=== PATIENT | male | born 1965 | race Caucasian/White ===

== ENCOUNTER → 2018-10-28 07:39 | Outpatient (CLI) | payer OTHER, SELFPAY ==
[2018-10-28 08:56] LABS: Cholesterol 203 mg/dL (140-199); HDL Cholesterol 41 mg/dL (40-60); LDL Cholesterol Calculated 126 mg/dL (<100); Triglycerides 179 mg/dL (35-150)
== END ==
LOC: LAB 07:39
PROVIDERS: Family Provider Family Medicine; PCP Family Medicine; Visit Provider Family Medicine
DX: E78.5 Hyperlipidemia, unspecified (principal)
CPT/HCPCS: 36415; 80061

== ENCOUNTER → 2018-11-12 07:58 | Outpatient (CLI) | payer OTHER, SELFPAY ==
[2018-11-12 08:47] LABS: Add Manual Diff / Slide Review NO; Basophils Absolute Auto 0 /uL (0-100); Basophils Percent Auto 0.3 % (0-2); Eosinophils Absolute Auto 100 /uL (0-450); Eosinophils Percent Auto 3.3 % (2-4); Hematocrit 44.1 % (41-53); Hemoglobin 15.2 g/dL (13.5-17.5); Lymphocytes Absolute Auto 1000 /uL (1100-4500); Lymphocytes Percent Auto 22.4 % (25-40); Mean Corpuscular HGB Conc 34.5 % (30-36); Mean Corpuscular Hemoglobin 34.2 PG (26-34); Mean Corpuscular Volume 99.3 fL (80-100); Monocytes Absolute Auto 500 /uL (0-900); Monocytes Percent Auto 10.6 % (3-14); Neutrophils Absolute Auto 2800 /uL (1500-7000); Neutrophils Percent Auto 63.4 % (50-75); Platelet Count 214 X10^3/uL (150-400); Red Blood Cell Count 4.44 X10^6/uL (4.5-5.9); Red Cell Distribution Width 12.5 % (11.6-14.8); White Blood Cell Count 4.5 X10^3/uL (4.5-11.0)
[2018-11-12 08:58] LABS: Alanine Aminotransferase 46 IU/L (21-72); Albumin Globulin Ratio 1.3 (1.0-2.8); Alkaline Phosphatase 80 U/L (38-126); Aspartate Aminotransferase 36 IU/L (17-59); Bilirubin Total 0.9 mg/dL (0.2-1.3); Blood Urea Nitrogen 14 mg/dL (9-20); Carbon Dioxide 30 mmol/L (22-32); Chloride 99 mmol/L (98-107); Cholesterol 222 mg/dL (140-199); Estimated Glomerular Filt Rate > 60.0 mL/min (>60); Globulin 3.8 g/dL (1.7-4.1); Glucose 98 mg/dL (70-100); HDL Cholesterol 46 mg/dL (40-60); HEMOLYSIS < 15 (0-50); LDL Cholesterol Calculated 157 mg/dL (<100); Sodium 140 mmol/L (137-145); Total Protein 8.8 g/dL (6.3-8.2); Triglycerides 97 mg/dL (35-150)
[2018-11-12 10:00] LABS: Thyroid Stimulating Hormone 2.47 uIU/mL (0.47-4.68)
== END ==
PROVIDERS: PCP Family Medicine; Visit Provider Family Medicine
DX: E78.5 Hyperlipidemia, unspecified (principal); I10 Essential (primary) hypertension; I25.10 Atherosclerotic heart disease of native coronary artery without angina pectoris
CPT/HCPCS: 36415; 80053; 80061; 84443; 85025

== ENCOUNTER → 2021-12-13 12:03 | Outpatient (CLI) | payer OTHER, SELFPAY ==
[2021-12-13 13:09] LABS: Hematocrit 43.7 % (41-53); Mean Corpuscular HGB Conc 34.3 % (30-36); Mean Corpuscular Hemoglobin 34.2 PG (26-34); Mean Corpuscular Volume 99.6 fL (80-100); Platelet Count 219 X10^3/uL (150-400); Red Blood Cell Count 4.39 X10^6/uL (4.5-5.9); Red Cell Distribution Width 12.4 % (11.6-14.8); White Blood Cell Count 5.3 X10^3/uL (4.5-11.0)
[2021-12-13 13:51] LABS: Neutrophils Absolute Manual 3498 /uL (3000-5900); Total Cells Counted 100
[2021-12-13 13:52] LABS: RBC Morphology Normal Morphology
[2021-12-13 14:23] LABS: Alanine Aminotransferase 41 IU/L (<50); Albumin 5.1 g/dL (3.5-5.0); Albumin Globulin Ratio 1.6 (1.0-2.8); Alkaline Phosphatase 75 U/L (38-126); Aspartate Aminotransferase 43 IU/L (17-59); BUN Creatinine Ratio 17.1 (6-22); Blood Urea Nitrogen 12 mg/dL (9-20); Calcium 9.6 mg/dL (8.4-10.2); Carbon Dioxide 31 mmol/L (22-32); Chloride 101 mmol/L (98-107); Cholesterol 190 mg/dL (140-199); Estimated Glomerular Filt Rate > 60 mL/min (>60); Globulin 3.1 g/dL (1.7-4.1); Glucose 89 mg/dL (70-100); HDL Cholesterol 55 mg/dL (40-60); HEMOLYSIS < 15 (0-50); LDL Cholesterol Calculated 116 mg/dL (<100); Potassium 4.2 mmol/L (3.4-5.1); Sodium 141 mmol/L (137-145); Total Protein 8.2 g/dL (6.3-8.2); Triglycerides 97 mg/dL (35-150)
== END ==
PROVIDERS: PCP Family Medicine; Referring Provider Family Medicine; Visit Provider Family Medicine
DX: E78.5 Hyperlipidemia, unspecified (principal); I10 Essential (primary) hypertension; I24.9 Acute ischemic heart disease, unspecified
CPT/HCPCS: 36415; 80053; 80061; 84153; 85025

== ENCOUNTER → 2023-08-18 14:23 | Outpatient (CLI) | payer OTHER, SELFPAY | PROVIDERS: PCP Family Medicine; Visit Provider Nurse Practitioner Family | DX: J02.9 Acute pharyngitis, unspecified (principal) | CPT/HCPCS: 87070 ==

== ENCOUNTER 2024-03-23 09:49 | Emergency (ER) | payer OTHER, SELFPAY ==
[2024-03-23 10:18] VITALS: BP 141/85; PULSE 87; RESP 15; TEMP 37.2; O2SAT 96; BMI 25.8
--- NOTE | 2024-03-23 10:27 | EKG_ITS ---
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
[2024-03-23 10:49] LABS: Add Manual Diff / Slide Review NO; Basophils Absolute Auto 0 /uL (0-100); Basophils Percent Auto 0.3 % (0-2); Eosinophils Absolute Auto 0 /uL (0-450); Hematocrit 47.9 % (41-53); Hemoglobin 16.9 g/dL (13.5-17.5); Lymphocytes Absolute Auto 600 /uL (1100-4500); Lymphocytes Percent Auto 3.6 % (25-40); Mean Corpuscular HGB Conc 35.2 % (30-36); Mean Corpuscular Hemoglobin 35.2 PG (26-34); Mean Corpuscular Volume 99.9 fL (80-100); Monocytes Absolute Auto 1100 /uL (0-900); Monocytes Percent Auto 6.7 % (3-14); Neutrophils Absolute Auto 15000 /uL (1500-7000); Neutrophils Percent Auto 89.4 % (50-75); Platelet Count 190 X10^3/uL (150-400); Red Cell Distribution Width 12.8 % (11.6-14.8); White Blood Cell Count 16.8 X10^3/uL (4.5-11.0)
[2024-03-23 11:06] LABS: Lipase 71 U/L (23-300)
[2024-03-23 11:08] LABS: Alanine Aminotransferase 77 IU/L (<50); Albumin 4.8 g/dL (3.5-5.0); Albumin Globulin Ratio 1.4 (1.0-2.8); Alkaline Phosphatase 88 U/L (38-126); Aspartate Aminotransferase 71 IU/L (17-59); Bilirubin Total 2.5 mg/dL (0.2-1.3); Blood Urea Nitrogen 16 mg/dL (9-20); Calcium 9.2 mg/dL (8.4-10.2); Carbon Dioxide 27 mmol/L (22-32); Chloride 99 mmol/L (98-107); Estimated Glomerular Filt Rate > 60 mL/min (>60); Globulin 3.4 g/dL (1.7-4.1); Glucose 121 mg/dL (80-110); HEMOLYSIS < 15 (0-50); Potassium 4.4 mmol/L (3.4-5.1); Sodium 137 mmol/L (137-145); Total Protein 8.2 g/dL (6.3-8.2)
== END 2024-03-23 15:41 | disposition left against medical advice (07) ==
PROVIDERS: Emergency Provider Emergency Medicine; PCP Family Medicine
DX: R10.30 Lower abdominal pain, unspecified (principal); R50.9 Fever, unspecified
CPT/HCPCS: 36415; 80053; 83690; 85025; 93005; 99281

== ENCOUNTER 2024-07-13 14:41 | Emergency (ER) | payer OTHER, SELFPAY ==
[2024-07-13] VITALS (22 sets, daily range): BP systolic 94–196; BP diastolic 51–99; PULSE 48–74; RESP 12–21; TEMP 36.8; O2SAT 92–98; BMI 25.8
--- NOTE | 2024-07-13 14:47 | DI.RAD.S_ITS ---
PROCEDURE: XR CHEST 1V INDICATIONS: chest pain TECHNIQUE: One view of the chest was acquired. COMPARISON: [facility], , CHEST 1 VIEW, 06/09/2017, 10:59. FINDINGS: Surgical changes and devices: None. Lungs and pleura: Low lung volumes. No dense airspace disease or pleural effusions. Mediastinum: Heart size is normal and unchanged. Bones and chest wall: Degenerative findings IMPRESSION: Low lung volumes. No acute radiographic abnormality on this single view study. Dictated by: Abdoul Alvarado M.D. on 07/13/2024 at 16:16 Approved by: Abdoul Alvarado M.D. on 07/13/2024 at 16:17
--- NOTE | 2024-07-13 15:04 | EKG_ITS ---
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
[2024-07-13 15:21] LABS: Add Manual Diff / Slide Review NO; Basophils Absolute Auto 0 /uL (0-100); Basophils Percent Auto 0.4 % (0-2); Eosinophils Absolute Auto 200 /uL (0-450); Hematocrit 48.8 % (41-53); Hemoglobin 17.2 g/dL (13.5-17.5); Lymphocytes Absolute Auto 1400 /uL (1100-4500); Lymphocytes Percent Auto 15.9 % (25-40); Mean Corpuscular HGB Conc 35.2 % (30-36); Mean Corpuscular Hemoglobin 35.1 PG (26-34); Mean Corpuscular Volume 99.9 fL (80-100); Monocytes Absolute Auto 600 /uL (0-900); Monocytes Percent Auto 6.9 % (3-14); Neutrophils Absolute Auto 6500 /uL (1500-7000); Neutrophils Percent Auto 74.8 % (50-75); Platelet Count 228 X10^3/uL (150-400); Red Blood Cell Count 4.89 X10^6/uL (4.5-5.9); White Blood Cell Count 8.7 X10^3/uL (4.5-11.0)
[2024-07-13 15:28] LABS: INR 1.1 (0.9-1.3); Prothrombin Time 12.5 SECONDS (9.4-12.5)
[2024-07-13 15:30] LABS: PTT Partial Thromboplastin Tim 38 SECONDS (25.1-36.5)
[2024-07-13 15:39] LABS: Alanine Aminotransferase 70 IU/L (<50); Albumin 4.8 g/dL (3.5-5.0); Albumin Globulin Ratio 1.3 (1.0-2.8); Alkaline Phosphatase 74 U/L (38-126); Aspartate Aminotransferase 87 IU/L (17-59); Bilirubin Total 1.8 mg/dL (0.2-1.3); Blood Urea Nitrogen 13 mg/dL (9-20); Calcium 9.9 mg/dL (8.4-10.2); Carbon Dioxide 26 mmol/L (22-32); Chloride 101 mmol/L (98-107); Creatine Kinase 87 U/L (55-170); Estimated Glomerular Filt Rate > 60 mL/min (>60); Globulin 3.7 g/dL (1.7-4.1); Glucose 97 mg/dL (80-110); Lipase 202 U/L (23-300); Magnesium 1.9 mg/dL (1.6-2.3); Potassium 4.4 mmol/L (3.4-5.1); Sodium 136 mmol/L (137-145); Total Protein 8.5 g/dL (6.3-8.2)
[2024-07-13 15:40] LABS: HEMOLYSIS 86 (0-50)
[2024-07-13 15:51] LABS: NT-proBNP (BNP-Adult 18+) 64 pg/mL (<125)
[2024-07-13 16:02] LABS: Troponin I 0.148 ng/mL (0.01-0.034)
--- NOTE | 2024-07-13 16:04 | ED_ITS ---
HPI - Chest Pain General Chief Complaint: Chest Pain Stated Complaint: chest tightness, HBP, weakness Time Seen by Provider: 07/13/24 16:04 Source: patient and family Mode of arrival: Ambulatory History of Present Illness HPI narrative: 58-year-old gentleman with History PR 8 years ago, 6:00 p.m. last night noted some chest pressure as well as elevated blood pressure which is quite unusual for him. He took dose of lisinopril and went to bed. The blood pressure seemed to respond and the chest pressure seemed to be slightly relieved. When he woke up this morning and noted additional substernal pressure and blood pressures again increasing. He took a dose of his 's propranolol, a baby aspirin and comes in for further evaluation. He has not noticing shortness of breath, diaphoresis, abdominal pain, vomiting. He has having no palpitations. At times he notes that the chest pain which is typically substernal is radiating into the left upper chest and left neck area. At most he describes the pain sensation as a 6/10 describes it currently as a 3/10. Related Data Home Medications Medication Instructions Recorded Confirmed aspirin 81 mg tablet,delayed 324 mg PO QDAY PRN ##0 06/09/17 07/08/24 release Allergies Allergy/AdvReac Type Severity Reaction Status Date / Time No Known Drug Allergies Allergy Verified 07/08/24 10:08 Review of Systems Review of Systems Narrative: Pertinent positive and negative findings as per HPI Patient History Medical History (Updated 07/13/24 @ 18:19 by Christine Robles MD) NSTEMI (non-ST elevated myocardial infarction) Vision disorder Chicken pox (~1970) Hypertension Surgical History History of vasectomy History of tonsillectomy Anesthesia Family History Father Age: 88 Heart disease Hypertension High cholesterol Stroke PR (myocardial infarction) CVA (cerebral infarction) Mother Age: 86 Diabetes mellitus Heart disease Hypertension High cholesterol Macular degeneration Social History marital status: household members: significant other and children pets and animals: Yes education level: college occupational status: employed seatbelt use: sometimes water heater temp set < 120 deg: No working smoke detector in home: Yes fire extinguisher in home: Yes carbon monox detector in home: No firearms in home: Yes firearms unloaded and locked: Yes Smoking Status: Never smoker Smokeless tobacco user: other (QUIT 2008) alcohol intake: current (2 + A DAY ) substance use type: does not use during the past year weight has: remained stable well-balanced diet: daily or most days daily servings fruits/ve-4 caffeine: Yes (1-2 caffeine drinks per day, Coke) eating out: 1-3 times/week frequency: daily duration: 60-90 minutes/day Smoking Status: Never smoker alcohol intake frequency: 3 or more drinks per day Substance Use Type: does not use Exam Initial Vital Signs Initial Vital Signs: Vital Signs Temperature 98.3 F 07/13/24 14:53 Pulse Rate 49 L 07/13/24 14:53 Respiratory Rate 16 07/13/24 14:53 Blood Pressure 196/96 H 07/13/24 14:53 Pulse Oximetry 97 07/13/24 14:53 Oxygen Delivery Method Room Air 07/13/24 14:53 General: Healthy appearing, in no acute distress. Able to give a complete and coherent history. Well-nourished well-developed HEENT: Moist mucous membranes, normal sclera with reactive pupils, Neck: No JVD, supple Respiratory: Lungs are clear to auscultation, no wheezing no rales no rhonchi. Full and symmetrical air movement Cardiac: Regular rate and rhythm no murmurs no bruits Abdomen: Soft, nontender, good bowel tones, no flank pain Skin: Warm and dry, no rashes Neurologic: Grossly neurologically intact with no obvious asymmetries or abnormalities Extremities: No trauma, well perfused Psych: Cooperative, appropriate insight and affect Course Orders Ordered: ED Orders 07/13/24 14:47 XR chest 1V Stat EKG-12 Lead Stat 07/13/24 15:10 Complete Blood Count AUTO DIFF Stat Comprehensive Metabolic Panel Stat Lipase Stat Magnesium Stat NT-proBNP (BNP-Adult 18+) Stat PTT Partial Thromboplastin Nadir Stat Prothrombin Time INR Stat Troponin & CK Cardiac Panel Stat 07/13/24 17:20 Trop I [Troponin I] Stat 07/13/24 22:30 PTT Partial Thromboplastin Nadir Q6H 07/14/24 04:30 PTT Partial Thromboplastin Nadir Q6H 07/14/24 05:00 Hemoglobin and Hematocrit DAILY Platelet Count DAILY 07/14/24 10:30 PTT Partial Thromboplastin Nadir Q6H 07/15/24 05:00 Hemoglobin and Hematocrit DAILY Platelet Count DAILY Heparin Sodium/Dextrose (Heparin Drip) 25,000 unit in 500 mls @ 17.962 mls/hr IV CONT CHERYL; Protocol Last Admin: 07/13/24 16:28 Dose: 12 units/kg/hr, 17.962 mls/hr Documented By: ROBE Co-signed By: CONOR Nitroglycerin (Nitroglycerin 0.4 Mg Sl Tab) 0.4 mg SL [id number] PRN PRN Reason: Chest Pain Last Admin: 07/13/24 16:33 Dose: 0.4 mg Documented By: Admin: 07/13/24 16:23 Dose: 0.4 mg Documented By: ROBE Discontinued Medications Aspirin (Aspirin 81 Mg Chew Tab) 324 mg PO NOW ONE Stop: 07/13/24 14:48 Last Admin: 07/13/24 16:17 Dose: 324 mg Documented By: ORBE Heparin Sodium (Porcine) (Heparin 5,000 Unit/Ml Vial) 4,500 unit 60 unit/kg (4500 unit) IV NOW ONE Stop: 07/13/24 16:18 Last Admin: 07/13/24 16:27 Dose: 4,500 unit Documented By: ROBE Sodium Chloride (Normal Saline 0.9%) 500 mls @ 1,000 mls/hr IV BOLUS ONE Stop: 07/13/24 17:22 Last Infusion: 07/13/24 17:58 Dose: Infused Documented By: Admin: 07/13/24 16:54 Dose: 1,000 mls/hr Documented By: ROBE Nitroglycerin (Nitroglycerin Oint 1 Inch/Gm Oint...G.) 0.5 inch TOP NOW ONE Stop: 07/13/24 16:18 Last Admin: 07/13/24 16:54 Dose: 0.5 inch Documented By: ROBE Vital Signs Vital signs: Vital Signs - 8 hr 07/13/24 14:53 07/13/24 16:07 07/13/24 16:09 Temperature 98.3 F Pulse Rate 49 L 58 L 57 L Respiratory Rate 16 17 19 Blood Pressure 196/96 H Pulse Oximetry 97 98 98 Oxygen Delivery Method Room Air 07/13/24 16:09 07/13/24 16:30 07/13/24 16:31 Temperature Pulse Rate 60 58 L Respiratory Rate 15 19 Blood Pressure 177/99 H Pulse Oximetry 92 92 Oxygen Delivery Method 07/13/24 16:31 07/13/24 16:41 07/13/24 16:41 Temperature Pulse Rate 48 L Respiratory Rate 14 Blood Pressure 133/82 94/51 L Pulse Oximetry 94 Oxygen Delivery Method 07/13/24 17:00 07/13/24 17:01 07/13/24 17:01 Temperature Pulse Rate 55 L 57 L Respiratory Rate 16 21 Blood Pressure 118/73 Pulse Oximetry 96 96 Oxygen Delivery Method 07/13/24 17:30 07/13/24 17:30 07/13/24 18:00 Temperature Pulse Rate 59 L Respiratory Rate 16 Blood Pressure 144/79 H 156/84 H Pulse Oximetry 97 Oxygen Delivery Method 07/13/24 18:00 07/13/24 18:30 07/13/24 18:30 Temperature Pulse Rate 56 L 61 Respiratory Rate 14 18 Blood Pressure 136/76 Pulse Oximetry 96 96 Oxygen Delivery Method MDM - Chest Pain Lab Data 07/13/24 15:10 07/13/24 15:10 Labs: Lab Results 07/13/24 07/13/24 Range/Units 15:10 17:20 WBC 8.7 (4.5-11.0) X10^3/uL RBC 4.89 (4.5-5.9) X10^6/uL Hgb 17.2 (13.5-17.5) g/dL Hct 48.8 (41-53) % MCV 99.9 (80-100) fL MCH 35.1 H (26-34) PG MCHC 35.2 (30-36) % RDW 13.0 (11.6-14.8) % Plt Count 228 (150-400) X10^3/uL Neut % (Auto) 74.8 (50-75) % Lymph % (Auto) 15.9 L (25-40) % Ward % (Auto) 6.9 (3-14) % Eos % (Auto) 2.0 (2-4) % Baso % (Auto) 0.4 (0-2) % Neut # (Auto) 6500 (3838-9300) /uL Lymph # (Auto) 1400 (3664-4786) /uL Ward # (Auto) 600 (0-900) /uL Eos # (Auto) 200 (0-450) /uL Baso # (Auto) 0 (0-100) /uL PT 12.5 (9.4-12.5) SECONDS INR 1.1 (0.9-1.3) APTT 38 H (25.1-36.5) SECONDS Sodium 136 L (137-145) mmol/L Potassium 4.4 (3.4-5.1) mmol/L Chloride 101 (98-107) mmol/L Carbon Dioxide 26 (22-32) mmol/L BUN 13 (9-20) mg/dL Creatinine 0.59 L (0.66-1.25) mg/dL Estimated GFR > 60 (>60) mL/min BUN/Creatinine Ratio 22.0 (6-22) Glucose 97 (80-110) mg/dL Calcium 9.9 (8.4-10.2) mg/dL Magnesium 1.9 (1.6-2.3) mg/dL Total Bilirubin 1.8 H (0.2-1.3) mg/dL AST 87 H (17-59) IU/L ALT 70 H (<50) IU/L Alkaline Phosphatase 74 (38-126) U/L Total Creatine Kinase 87 (55-170) U/L Troponin I 0.148 H* 0.307 H* (0.01-0.034) ng/mL NT-Pro-B Natriuret Pep 64 (<125) pg/mL Total Protein 8.5 H (6.3-8.2) g/dL Albumin 4.8 (3.5-5.0) g/dL Globulin 3.7 (1.7-4.1) g/dL Albumin/Globulin Ratio 1.3 (1.0-2.8) Lipase 202 (23-300) U/L MDM Narrative Medical decision making narrative: CC: Waxing and waning chest pressure since 6:00 p.m. last night Complicating co-morbidities: PR reported years ago Data collected from: patient Social determinants of health that may influence the patients condition: Patient was planning to leave for a [place] day cruise on July 16 Medical records reviewed: Cardiac consultation October of 2018 is reviewed at that time he had been on Plavix, lisinopril aspirin Notes indicate NSTEMI June 09 teen treated with UMAIR to proximal LAD echocardiogram in November of 2017 had improved to an ejection fraction of 60%. Has been doing well at that time Differential considered: NSTEMI, STEMI, viral syndrome, pulmonary embolism, pneumothorax Exam documented above, pertinent findings include: Exam is benign, no evidence of volume overload. Lab Test results independently reviewed as above. Pertinent findings: CBC is unremarkable Chemistries show normal renal function and electrolytes. Total bilirubin is slightly elevated at 1.8, AST at 87 ALT at 70 this is similar to March of 2024 Troponin initial is elevated at 0.148 BNP is not elevated Repeat troponin is increased to 0.307 Independently reviewed EKG: Sinus bradycardia at a rate of 52, no acute ischemic changes Imaging studies independently reviewed: Chest x-ray does not show acute findings Consultations: [facility] has no beds [facility] possible in 24 hours Prov Alexander no beds [facility], possible will call back Treatments: Two sublingual nitro, now with half an inch of nitro paste and pain-free Heparin running Re-evaluations: Patient is essentially pain-free with nitroglycerin in place, blood pressure is come down nicely Discussion: 58-year-old gentleman with a prior episode of NSTEMI in 2017. Waxing and waning chest pain over the last 24 hours with the initial troponin positive at 0.148 and slight chest pain relieved with nitroglycerin. Second troponin is increasing to point 307, he is pain-free he continues with nitro paste, heparin drip. Has been accepted to [facility] in [place], Dr. Kelly as the accepting hospitalist. Still waiting for bed placement. At this point patient remains hemodynamically stable pain-free and will be transferred via ALS transport when bed is available. Patient is updated and questions are answered Critical Care Time Critical Care Time Critical Care Time: Yes Total Critical Care Time: 37 Attestation: Critical care time is separate from other billable procedures. There is a high probability of a significant, sudden or life-threatening deterioration that requires my full and direct attention, intervention and personal management. This critical care time includes consultation with family and other consulting doctors, review of records, and interpretation of data from labs, EKGs and imaging as well as managements of chest pain with IV heparin Discharge Plan Departure Patient Disposition: [facility] Clinical Impression: Non-ST elevation PR (NSTEMI) Prescriptions: No Action aspirin 81 MG tablet,delayed release (DR/EC) 324 mg PO QDAY PRNQty: 0 Referrals: Kirk España MD [Primary Care Provider] -
[2024-07-13] MEDS: ASPIRIN 81 MG CHEW TAB 324 MG PO (16:17)
[2024-07-13] MEDS: NITROGLYCERIN 0.4 MG SL TAB SL ×2 (16:23→16:33)
[2024-07-13] MEDS: HEPARIN 5,000 UNIT/ML VIAL 4500 UNIT IV (16:27)
[2024-07-13] MEDS: HEPARIN DRIP 25,000 UNIT/500 ML IV.SOLN 17.962 UNIT IV (16:28)
[2024-07-13] MEDS: SODIUM CHLORIDE 0.9% 500 ML 1000 ML IV (16:54)
[2024-07-13] MEDS: NITROGLYCERIN OINT 1 INCH/GM OINT...G. 0.5 INCH TOP (16:54)
[2024-07-13 18:06] LABS: Troponin I 0.307 ng/mL (0.01-0.034)
--- NOTE | 2024-07-13 19:35 | PC.NURSE ---
Per Dr. Grider, pt ok to eat and drink. Water and sandwich provided.
[2024-07-13 22:59] LABS: PTT Partial Thromboplastin Tim 75 SECONDS (25.1-36.5)
--- NOTE | 2024-07-13 23:09 | PC.NURSE ---
Pt offered hospital bed while waiting for transfer to . Pt declined at this time
[2024-07-14] VITALS (34 sets, daily range): BP systolic 122–174; BP diastolic 75–92; PULSE 53–78; RESP 8–22; O2SAT 94–98
[2024-07-14 05:21] LABS: Hematocrit 44.2 % (41-53); Hemoglobin 15.4 g/dL (13.5-17.5); Platelet Count 165 X10^3/uL (150-400)
[2024-07-14 05:24] LABS: PTT Partial Thromboplastin Tim 61 SECONDS (25.1-36.5)
--- NOTE | 2024-07-14 08:17 | PC.NURSE ---
Called [facility] for an update at 0815 and spoke with Ayesha, was stated they are still waiting for a bed. Will call when room assignment is available.
[2024-07-14 11:33] LABS: PTT Partial Thromboplastin Tim 59 SECONDS (25.1-36.5)
--- NOTE | 2024-07-14 15:02 | PC.NURSE ---
This RN gave verbal report to CAMDEN Julien from [facility] and CAMDEN Caldera at [facility]. Patient heparin was at a therapeutic level and this RN informed [facility] RN and Werner of [facility] of current heparin rates. Patient left on the heparin bag already in progress. Patient next PTT 1713 informed to both parties. Both parties informed of this departments phone number for any followup information. Patient left unit at 1340.
== END 2024-07-14 13:40 | disposition short-term general hospital (02) ==
PROVIDERS: Emergency Provider Emergency Medicine; PCP Family Medicine
DX: I21.4 Non-ST elevation (NSTEMI) myocardial infarction (principal); I10 Essential (primary) hypertension; R07.9 Chest pain, unspecified; R00.1 Bradycardia, unspecified; I25.2 Old myocardial infarction
CPT/HCPCS: 36415; 71045; 80053; 82550; 83690; 83735; 83880; 84484; 85014; 85018; 85025; 85049; 85610; 85730; 93005; 93010; 96365; 96366; 96375; 99284; 99291; J1644

== ENCOUNTER → 2025-03-10 08:55 | Outpatient (CLI) | payer OTHER, SELFPAY ==
[2025-03-10 10:06] LABS: Cholesterol 273 mg/dL (140-199); HDL Cholesterol 42 mg/dL (40-60); Triglycerides 126 mg/dL (35-150)
== END ==
PROVIDERS: PCP Family Medicine; Referring Provider Family Medicine; Visit Provider Family Medicine
DX: I25.10 Atherosclerotic heart disease of native coronary artery without angina pectoris (principal); E78.5 Hyperlipidemia, unspecified
CPT/HCPCS: 36415; 80061